=== PATIENT | female | born 1965 | race Caucasian/White ===

== ENCOUNTER 2017-05-19 19:18 | Inpatient (IN) | payer BC, OTHER ==
[2017-05-19 20:17] LABS: #Eosinphils 0.1 thou/uL (0.0-0.7); #Lymphocytes 2.1 thou/uL (1.20-3.40); #Monocytes 0.5 thou/uL (0.11-0.59); #Neutrophils 3.1 thou/uL (1.40-6.50); %Basophils 0.6 % (0.0-1.0); %Eosinophils 1.6 % (0.0-10.0); %Lymphocytes 36.1 % (21.0-51.0); %Monocytes 7.7 % (0.0-10.0); Hemoglobin 13.1 g/dL (12.0-16.0); Mean Corpuscular HGB CONC 33.6 g/dL (32.0-36.0); Mean Corpuscular Hemoglobin 31.2 pg (27.0-31.0); Mean Corpuscular Volume 92.8 fl (81.0-99.0); Mean Platelet Volume 6.7 fL (7.4-10.4); Platelet Count 235 thou/uL (130-400); RBC Distribution Width 11.2 % (11.5-14.5); White Blood Cell (WBC) Count 5.8 thou/uL (4.8-10.8)
[2017-05-19] MEDS ORDERED: methylPREDNISolone Sod Succ/PF 125 MG/2 ML VIAL ONE ×2 (20:29→20:33)
[2017-05-19 20:43] LABS: ALT (SGPT) 13 U/L (8-55); AST (SGOT) 13 U/L (5-34); Albumin 4.3 g/dL (3.5-5.0); Alkaline Phosphatase 47 U/L (40-150); Anion Gap 13 mmol/L (10-20); BUN (Urea Nitrogen) 13 mg/dL (7.0-18.7); Bilirubin, Total 0.4 mg/dL (0.2-1.2); Calc. Creatinine Clearance 0 mL/min (70-130); Calcium 9.7 mg/dL (7.8-10.44); Carbon Dioxide 28 mmol/L (22-29); Chloride 103 mmol/L (98-107); Estimated GFR-MDRD 55; Glucose 95 mg/dL (70-105); Potassium 4.1 mmol/L (3.5-5.1); Protein, Total 7.3 g/dL (6.0-8.3); Sodium 140 mmol/L (136-145)
[2017-05-19 21:44] VITALS: BMI 29.7
[2017-05-19] MEDS ORDERED: Senokot 8.6 MG TAB PO PRN (21:54)
[2017-05-19] MEDS ORDERED: Acetaminophen 325 MG TAB PO PRN (21:54)
[2017-05-19] MEDS ORDERED: hydrALAZINE 20 MG/ML VIAL SLOW IVP PRN (21:54)
[2017-05-19] MEDS ORDERED: Ondansetron ODT 4 MG TAB PO PRN (21:54)
[2017-05-19] MEDS ORDERED: Ondansetron HCl/PF 4 MG/2 ML Vial IVP PRN (21:54)
[2017-05-19] MEDS ORDERED: Eucerin (Mineral Oil/Petrolatum,White) 30 gm Jar TOP PRN (21:56)
[2017-05-19] MEDS ORDERED: Polyethylene Glycol 3350 17 GM Packet PO PRN (21:56)
[2017-05-19] MEDS ORDERED: methylPREDNISolone Sod Succ/PF 125 MG/2 ML VIAL IVP SCH (23:59)
--- NOTE | 2017-05-20 05:50 | HP ---
DATE OF ADMISSION: 05/19/2017 PRIMARY CARE PHYSICIAN: Dr. Reid Thapa. PRIMARY CONVERTER SKIMMER: Dr. Fleming. CHIEF COMPLAINT: Right-sided vision loss since last (05/13/2017). HISTORY OF PRESENT ILLNESS: Patient is a 51-year-old female with no neurological issues in the past, presented to the emergency room with above complaints. One week ago, patient noticed some difficulty in vision through right eye. Vision was blurry. This was progressively getting worse. Next day , she was evaluated by child development professor, Dr. Fleming in [place]. Ophthalmological examination was negative. An MRI of the brain with and without contrast done at [place] yesterday was consistent with optic neuritis. She received a call from the child development professor, Dr. Fleming to get admitted to the hospital for IV steroids. Dr. Fleming discussed the case with Neurology, Dr. Avelar. She denies any double vision, eye pain, or discharge. No other neurological deficit reported. Left eye vision is normal. PAST MEDICAL HISTORY: 1. History of migraines. 2. History of depression. PAST SURGICAL HISTORY: 1. Left heel surgery in 2009. 2. Bilateral tubal ligation. 3. Hospitalization for partial small-bowel obstruction at [facility] in 2016 that resolved with conservative management. ALLERGIES: No known drug allergies. CURRENT HOME MEDICATIONS: Vitamin B12 and ibuprofen as needed. FAMILY HISTORY: Father with hypertension and asthma. Mother with hypertension and cancer. Maternal grandmother with Alzheimer's dementia. Her mother also had breast cancer. SOCIAL HISTORY: Patient currently lives at home with her . She is self- employed, lives at home with her spouse. No smoking, alcohol, or drug use. REVIEW OF SYSTEMS: The following complete review of systems was negative, unless otherwise mentioned in the HPI or below: Constitutional: Weight loss or gain, ability to conduct usual activities. Skin: Rash, itching. Eyes: Double vision, pain. ENT/Mouth: Nose bleeding, neck stiffness, pain, tenderness. Cardiovascular: Palpitations, dyspnea on exertion, orthopnea. Respiratory: Shortness of breath, wheezing, cough, hemoptysis, fever, or night sweats. Gastrointestinal: Poor appetite, abdominal pain, heartburn, nausea, vomiting, constipation, or diarrhea. Genitourinary: Urgency, frequency, dysuria, nocturia. Musculoskeletal: Pain, swelling. Neurologic/Psychiatric: Anxiety, depression. Allergy/Immunologic: Skin rash, bleeding tendency. PHYSICAL EXAMINATION: VITAL SIGNS: Temperature 97.5, respirations 20, pulse 97, blood pressure 124/ 76 with O2 saturation 100% on room air. GENERAL: A 51-year-old female in no apparent distress. HEENT: Head atraumatic, normocephalic. Sclerae anicteric. Moist mucous membranes. No oral lesion. Pupils were equally reacting to light. The vision was diminished to her right. NECK: Supple, no JVD, no carotid bruit. LUNGS: Clear to auscultation bilaterally. HEART: S1, S2 present. Regular rate and rhythm. No murmurs, rubs, or gallops. ABDOMEN: Soft, nontender, bowel sounds present. EXTREMITIES: No edema or calf tenderness. NEUROLOGIC: Grossly nonfocal, moves all four extremities. PSYCHIATRY: Alert, awake, oriented x3. SKIN: Warm and dry. LYMPH NODES: No palpable lymph nodes in the neck. PERIPHERAL VASCULAR: Radial pulses palpable bilaterally. SKIN: Warm and dry. LYMPH NODES: No palpable lymph nodes in the neck. LABORATORY FINDINGS: CBC showed WBC 5.8 with hemoglobin 13.1, hematocrit 39, platelet 235. Chemistries showed sodium 140, potassium 4.1, chloride 103, bicarbonate 28, BUN 13, creatinine 1.05, glucose of 95. MRI of the brain was done at an outside facility. Family to bring the disk in a.m. IMPRESSION AND PLAN: 1. Optic neuritis causing painless visual deficit from the right eye. Patient will continue IV Solu-Medrol 250 mg every q.[address] Avelar's recommendation. Dr. Avelar will be consulted. We will add H2 blockers as well as calcium with vitamin D. Multiple sclerosis is suspected. 2. History of migraines without any acute episode. 3. Depression without any suicidal ideation. 4. Chronic kidney disease, stage 3. Plan of care was discussed with the patient and the family at the bedside. They stated understanding. MTDD
[2017-05-20] MEDS ORDERED: Mag-Al 1200 mg/1200 mg/30 ML UDCUP PO PRN (08:13)
[2017-05-20] MEDS ORDERED: Sodium Chloride 0.65% Nasal 44 ML BOT EA NARE PRN (08:13)
[2017-05-20] MEDS ORDERED: Chloraseptic Spray 180 ml Bottle PO PRN (08:13)
[2017-05-20] MEDS ORDERED: Labetalol HCl 100 MG/20 ML VIAL SLOW IVP PRN (08:13)
[2017-05-20] MEDS ORDERED: Loperamide HCl 2 MG CAP PO PRN (08:13)
[2017-05-20] MEDS ORDERED: Artificial Tears 18 DROP/0.9 ML EA EYE PRN (08:13)
[2017-05-20] MEDS ORDERED: Temazepam 15 MG CAP PO PRN (08:13)
[2017-05-20] MEDS ORDERED: Loratadine 10 MG TAB PO PRN (08:13)
[2017-05-20] MEDS ORDERED: Diabetic Tussin 200 MG/10 ML UDCUP PO PRN (08:13)
[2017-05-20] MEDS ORDERED: Milk Of Magnesia 30 ML UDCUP PO PRN (08:13)
[2017-05-20] MEDS ORDERED: Calcium Carbonate 500 MG ChewTAB PO PRN (08:13)
[2017-05-20] MEDS: HYDROcodone/Acetaminophen 5/325 mg Tablet PO PRN ×3 (08:35→22:32)
[2017-05-20] MEDS: Calcium Carbonate + Vit D 1 TAB PO SCH ×2 (08:37→16:05)
[2017-05-20] MEDS: Famotidine 20 MG TAB PO SCH ×2 (08:38→21:04)
--- NOTE | 2017-05-20 10:25 | PDOC.PN ---
- Subjective Encounter Start Date: 05/20/17 Encounter Start Time: 07:45 -: old records requested/rev pt c/o headache this morning, still has vision loss in right eye, no fever - Objective Resuscitation Status: Resuscitation Status FULL:Full Resuscitation MAR Reviewed: Yes Vital Signs & Weight: Vital Signs (12 hours) Temp Pulse Resp BP Pulse Ox 05/20/17 08:00 98.6 F 106 H 18 97 05/20/17 07:44 98.6 F 106 H 18 104/70 97 05/20/17 04:00 97.9 F 100 18 119/76 96 Result Diagrams: 05/19/17 20:07 05/19/17 20:07 Phys Exam - Physical Examination Constitutional: NAD HEENT: moist MMs, sclera anicteric Neck: no JVD, supple Respiratory: no wheezing, no rales, no rhonchi Cardiovascular: RRR, no significant murmur, no rub Gastrointestinal: soft, non-tender, no distention, positive bowel sounds Musculoskeletal: no edema, pulses present Neurological: non-focal, normal sensation, moves all 4 limbs Psychiatric: normal affect, A&O x 3 Skin: no rash, normal turgor Dx/Plan (1) Optic neuritis, right Code(s): H46.9 - UNSPECIFIED OPTIC NEURITIS Status: Acute (2) Anxiety and depression Code(s): F41.8 - OTHER SPECIFIED ANXIETY DISORDERS Status: Chronic (3) CKD (chronic kidney disease) stage 3, GFR 30-59 ml/min Code(s): N18.3 - CHRONIC KIDNEY DISEASE, STAGE 3 (MODERATE) Status: Chronic (4) Migraine Code(s): G43.909 - MIGRAINE, UNSP, NOT INTRACTABLE, WITHOUT STATUS MIGRAINOSUS Status: Chronic - Plan cont current plan of care * continue IV solumedrol * neurology to see later today * MRI from outside will get * medication reviewed as below * symptomatic treatment. Review of Systems - Review of Systems Eyes: Vision Change. negative: Pain, Conjunctivae Inflammation, Eyelid Inflammation, Redness, Other ENT: negative: Ear Pain, Ear Discharge, Nose Pain, Nose Discharge, Nose Congestion, Mouth Pain, Mouth Swelling, Throat Pain, Throat Swelling, Other Respiratory: negative: Cough, Dry, Shortness of Breath, Hemoptysis, SOB with Excertion, Pleuritic Pain, Sputum, Wheezing Cardiovascular: negative: chest pain, palpitations, orthopnea, paroxysmal nocturnal dyspnea, edema, light headedness, other Gastrointestinal: negative: Nausea, Vomiting, Abdominal Pain, Diarrhea, Constipation, Melena, Hematochezia, Other Genitourinary: negative: Dysuria, Frequency, Incontinence, Hematuria, Retention , Other Musculoskeletal: negative: Neck Pain, Shoulder Pain, Arm Pain, Back Pain, Hand Pain, Leg Pain, Foot Pain, Other Neurological: Other (headache). negative: Weakness, Numbness, Incoordination, Change in Speech, Confusion, Seizures - Medications/Allergies Allergies/Adverse Reactions: Allergies Allergy/AdvReac Type Severity Reaction Status Date / Time No Known Allergies Allergy Unverified 05/19/17 21:28 Medications: Current Medications Acetaminophen (Tylenol) 650 mg PO Q4H PRN PRN Reason: Headache/Fever or Pain Last Admin: 05/20/17 04:01 Dose: 650 mg Hydrocodone Bitart/Acetaminophen ([place] 5/325) 1 tab PO Q4H PRN PRN Reason: Moderate Pain (4-6) Last Admin: 05/20/17 08:35 Dose: 1 tab Al Hydroxide/Mg Hydroxide (Maalox) 15 ml PO Q4H PRN PRN Reason: Heartburn or Indigestion Artificial Tears (Tears Naturale) 0 drop EA EYE PRN PRN PRN Reason: Dry Eyes Calcium Carbonate (Tums) 1,000 mg PO Q4H PRN PRN Reason: Heartburn or Indigestion Calcium/Vitamin D (Caltrate 600 + Vit D) 1 tab PO BID-[facility] Last Admin: 05/20/17 08:37 Dose: 1 tab Famotidine (Pepcid) 20 mg PO BID [facility] Last Admin: 05/20/17 08:38 Dose: 20 mg Guaifenesin (Robitussin Sf) 200 mg PO Q4H PRN PRN Reason: Cough Hydralazine HCl (Apresoline) 10 mg SLOW IVP Q4H PRN PRN Reason: SBP Greater Than 180 Methylprednisolone Sodium Succinate 250 mg/ Sodium Chloride 104 mls @ 208 mls/ hr IVPB 0300,0900,1500,2100 [facility] Last Admin: 05/20/17 02:54 Dose: 104 mls Labetalol HCl (Normodyne) 20 mg SLOW IVP Q4H PRN PRN Reason: Systolic BP > 180 Loperamide HCl (Imodium) 2 mg PO PRN PRN PRN Reason: Diarrhea/Loose Stools Loratadine (Claritin) 10 mg PO DAILYPRN PRN PRN Reason: Sinus Symptoms Magnesium Hydroxide (Milk Of Magnesium) 30 ml PO DAILYPRN PRN PRN Reason: Constipation Mineral Oil/White Petrolatum (Eucerin Cream) 0 gm TOP BIDPRN PRN PRN Reason: Dry Skin Ondansetron HCl (Zofran Odt) 4 mg PO Q6H PRN PRN Reason: Nausea/Vomiting Ondansetron HCl (Zofran) 4 mg IVP Q6H PRN PRN Reason: Nausea/Vomiting Phenol (Chloraseptic [place] 180 Ml Bot) 0 ml PO PRN PRN PRN Reason: Sore Throat Polyethylene Glycol (Miralax) 17 gm PO DAILYPRN PRN PRN Reason: Constipation Senna (Senokot) 2 tab PO HSPRN PRN PRN Reason: Constipation Sodium Chloride ([place] Nasal [place] 0.65%) 0 ml EA NARE QIDPRN PRN PRN Reason: Nasal Congestion Temazepam (Restoril) 15 mg PO HSPRN PRN PRN Reason: Insomnia
[2017-05-21 04:41] LABS: #Lymphocytes 0.7 thou/uL (1.20-3.40); #Monocytes 0.2 thou/uL (0.11-0.59); #Neutrophils 9.7 thou/uL (1.40-6.50); %Eosinophils 0.1 % (0.0-10.0); %Lymphocytes 6.9 % (21.0-51.0); %Monocytes 1.8 % (0.0-10.0); %Neutrophils 91.2 % (42.0-75.0); Hemoglobin 12.9 g/dL (12.0-16.0); Mean Corpuscular HGB CONC 34.1 g/dL (32.0-36.0); Mean Corpuscular Hemoglobin 31.4 pg (27.0-31.0); Mean Corpuscular Volume 91.9 fl (81.0-99.0); Mean Platelet Volume 7.6 fL (7.4-10.4); Platelet Count 232 thou/uL (130-400); RBC Distribution Width 11.1 % (11.5-14.5); Red Blood Cell (RBC) Count 4.11 mill/uL (4.20-5.40); White Blood Cell (WBC) Count 10.6 thou/uL (4.8-10.8)
[2017-05-21 04:48] LABS: Anion Gap 12 mmol/L (10-20); BUN (Urea Nitrogen) 11 mg/dL (7.0-18.7); Calc. Creatinine Clearance 138 mL/min (70-130); Calcium 9.4 mg/dL (7.8-10.44); Carbon Dioxide 27 mmol/L (22-29); Chloride 106 mmol/L (98-107); Estimated GFR-MDRD Greater than 90; Glucose 155 mg/dL (70-105); Potassium 3.8 mmol/L (3.5-5.1); Sodium 141 mmol/L (136-145)
[2017-05-21 05:07] LABS: Syphilis Antibody Nonreactive (Nonreactive); Syphilis Antibody Index 0.04 S/CO (<1.00 Non-Reactive)
[2017-05-21 05:20] LABS: Folate (Folic Acid) 5.9 ng/mL (7.0-31.4)
[2017-05-21] MEDS: Famotidine 20 MG TAB PO SCH ×2 (08:15→20:49)
[2017-05-21] MEDS: Calcium Carbonate + Vit D 1 TAB PO SCH ×2 (08:15→18:01)
--- NOTE | 2017-05-21 09:36 | PDOC.PN ---
- Subjective Encounter Start Date: 05/21/17 Encounter Start Time: 08:50 Patient seen and examined. No new complaints. No overnight events no headache today, 10% improvement per pt - Objective Resuscitation Status: Resuscitation Status FULL:Full Resuscitation MAR Reviewed: Yes Vital Signs & Weight: Vital Signs (12 hours) Temp Pulse Resp BP Pulse Ox 05/21/17 08:18 95 05/21/17 07:41 98.7 F 109 H 16 128/81 93 L I&O: 05/20/17 05/21/17 05/22/17 06:59 06:59 06:59 Intake Total 1020 Balance 1020 Result Diagrams: 05/21/17 03:31 05/21/17 03:31 Phys Exam - Physical Examination Constitutional: NAD HEENT: PERRLA, moist MMs, sclera anicteric Neck: no JVD, supple Respiratory: no wheezing, no rales, no rhonchi Cardiovascular: RRR, no significant murmur, no rub Gastrointestinal: soft, non-tender, no distention, positive bowel sounds Musculoskeletal: no edema, pulses present Neurological: non-focal, normal sensation, moves all 4 limbs Psychiatric: normal affect, A&O x 3 Skin: no rash, normal turgor Dx/Plan (1) Optic neuritis, right Code(s): H46.9 - UNSPECIFIED OPTIC NEURITIS Status: Acute (2) Anxiety and depression Code(s): F41.8 - OTHER SPECIFIED ANXIETY DISORDERS Status: Chronic (3) CKD (chronic kidney disease) stage 3, GFR 30-59 ml/min Code(s): N18.3 - CHRONIC KIDNEY DISEASE, STAGE 3 (MODERATE) Status: Chronic (4) Migraine Code(s): G43.909 - MIGRAINE, UNSP, NOT INTRACTABLE, WITHOUT STATUS MIGRAINOSUS Status: Chronic - Plan cont current plan of care * today MRI cervical and thoracic spine * medication reviewed as below * symptomatic treatment * continue IV solumedrol * neurology following. Review of Systems - Review of Systems Constitutional: negative: fever, chills, sweats, weakness, malaise, other Eyes: Vision Change. negative: Pain, Conjunctivae Inflammation, Eyelid Inflammation, Redness, Other ENT: negative: Ear Pain, Ear Discharge, Nose Pain, Nose Discharge, Nose Congestion, Mouth Pain, Mouth Swelling, Throat Pain, Throat Swelling, Other Respiratory: negative: Cough, Dry, Shortness of Breath, Hemoptysis, SOB with Excertion, Pleuritic Pain, Sputum, Wheezing Cardiovascular: negative: chest pain, palpitations, orthopnea, paroxysmal nocturnal dyspnea, edema, light headedness, other Gastrointestinal: negative: Nausea, Vomiting, Abdominal Pain, Diarrhea, Constipation, Melena, Hematochezia, Other Genitourinary: negative: Dysuria, Frequency, Incontinence, Hematuria, Retention , Other Musculoskeletal: negative: Neck Pain, Shoulder Pain, Arm Pain, Back Pain, Hand Pain, Leg Pain, Foot Pain, Other Skin: negative: Rash, Lesions, Santy, Bruising, Other - Medications/Allergies Allergies/Adverse Reactions: Allergies Allergy/AdvReac Type Severity Reaction Status Date / Time No Known Allergies Allergy Unverified 05/19/17 21:28 Medications: Current Medications Acetaminophen (Tylenol) 650 mg PO Q4H PRN PRN Reason: Headache/Fever or Pain Last Admin: 05/20/17 04:01 Dose: 650 mg Hydrocodone Bitart/Acetaminophen ([place] 5/325) 1 tab PO Q4H PRN PRN Reason: Moderate Pain (4-6) Last Admin: 05/20/17 22:32 Dose: 1 tab Al Hydroxide/Mg Hydroxide (Maalox) 15 ml PO Q4H PRN PRN Reason: Heartburn or Indigestion Artificial Tears (Tears Naturale) 0 drop EA EYE PRN PRN PRN Reason: Dry Eyes Calcium Carbonate (Tums) 1,000 mg PO Q4H PRN PRN Reason: Heartburn or Indigestion Last Admin: 05/21/17 04:21 Dose: 1,000 mg Calcium/Vitamin D (Caltrate 600 + Vit D) 1 tab PO BID-[facility] Last Admin: 05/21/17 08:15 Dose: 1 tab Famotidine (Pepcid) 20 mg PO BID [facility] Last Admin: 05/21/17 08:15 Dose: 20 mg Guaifenesin (Robitussin Sf) 200 mg PO Q4H PRN PRN Reason: Cough Hydralazine HCl (Apresoline) 10 mg SLOW IVP Q4H PRN PRN Reason: SBP Greater Than 180 Methylprednisolone Sodium Succinate 250 mg/ Sodium Chloride 104 mls @ 208 mls/ hr IVPB 0300,0900,1500,2100 [facility] Last Admin: 05/21/17 08:16 Dose: 104 mls Labetalol HCl (Normodyne) 20 mg SLOW IVP Q4H PRN PRN Reason: Systolic BP > 180 Loperamide HCl (Imodium) 2 mg PO PRN PRN PRN Reason: Diarrhea/Loose Stools Loratadine (Claritin) 10 mg PO DAILYPRN PRN PRN Reason: Sinus Symptoms Magnesium Hydroxide (Milk Of Magnesium) 30 ml PO DAILYPRN PRN PRN Reason: Constipation Mineral Oil/White Petrolatum (Eucerin Cream) 0 gm TOP BIDPRN PRN PRN Reason: Dry Skin Ondansetron HCl (Zofran Odt) 4 mg PO Q6H PRN PRN Reason: Nausea/Vomiting Ondansetron HCl (Zofran) 4 mg IVP Q6H PRN PRN Reason: Nausea/Vomiting Phenol (Chloraseptic [place] 180 Ml Bot) 0 ml PO PRN PRN PRN Reason: Sore Throat Polyethylene Glycol (Miralax) 17 gm PO DAILYPRN PRN PRN Reason: Constipation Senna (Senokot) 2 tab PO HSPRN PRN PRN Reason: Constipation Sodium Chloride ([place] Nasal [place] 0.65%) 0 ml EA NARE QIDPRN PRN PRN Reason: Nasal Congestion Temazepam (Restoril) 15 mg PO HSPRN PRN PRN Reason: Insomnia
--- NOTE | 2017-05-21 13:37 | PRG ---
DATE OF SERVICE: 05/21/2017 SUBJECTIVE: Ms. Riley is a pleasant 51-year-old female who presented with acute onset of right optic neuritis. Today, she reports of having noted some improvement in her vision. She is now able to make out and the lining of the objects as well as some colors although she really is not com pletely back to normal yet. She denies any other new symptoms. PHYSICAL EXAMINATION: VITAL SIGNS: Blood pressure of 128/81, pulse of 109, temperature of 98.7, respirations of 16, O2 sat s of 93% on room air. GENERAL: Well-developed, well-nourished female in no apparent distress. RESPIRATORY: Clear to auscultation bilaterally. CARDIOVASCULAR: Regular rate and rhythm. NEUROLOGIC: Essentially unchanged except for some improvement in her vision in the right eye, compar ed to yesterday. IMAGING STUDIES: MRI cervical spine and thoracic spine were reviewed, which are essentially unremark able showing no sign of any new acute lesion, new acute demyelinating lesion. ASSESSMENT AND PLAN: Right optic neuritis. Ms. Riley is a pleasant 51-year-old female who presented with acute onset of right-sided v ision loss. She is found to have a right optic neuritis. Her MRI of the brain showed a single lesio n suggestive of sclerosis. Her MRI cervical and thoracic spine appeared normal to me, I am still tawana velazquez for the official radiology report. I have discussed with the patient that we will continue with IV steroids and complete 12 doses. She will need a lumbar puncture which I have ordered for today. She will follow up in my clinic in 2 weeks and we will discuss the results of the lumbar puncture du ring that visit. She will need a Medrol Dosepak added up on discharge. Thank you for the consultation.
--- NOTE | 2017-05-21 13:39 | MRI ---
MRI THORACIC SPINE WITH AND WITHOUT CONTRAST: HISTORY: Demyelinating disease. TECHNIQUE: Multiplanar, multisequential imaging of the thoracic spine. Post contrast images obtained after the administration of 17 mL of MultiHance IV. FINDINGS: The thoracic vertebrae maintain normal height and alignment. Very mild degenerative change at the th oracic spine noted with mild anterior osteophytes. Disk spaces are preserved. No vertebral body ruben ma or enhancement identified. No evidence of disk bulge or disk protrusion at any of the thoracic le vels. Thoracic cord signal is normal. No evidence of a demyelinating process. IMPRESSION: Unremarkable MRI of the thoracic spine. POS: [facility]
--- NOTE | 2017-05-21 13:46 | MRI ---
MRI CERVICAL SPINE WITH AND WITHOUT CONTRAST: Multiplanar, multisequential imaging of cervical spine obtained. Postcontrast images were obtained a fter administration of 17 cc MultiHance IV. HISTORY: Demyelinating disease. COMPARISON: No comparison. FINDINGS: Cervical vertebrae maintain height. There is mild anterior wedging involving the C5 vertebra. Loss of disk space noted at C5-6 and C6-7. Mild degenerative osteophytes in the anterior vertebrae most p rominent at C4-5 and C5-6. Slight anterior subluxation of C4 on C5. No vertebral body edema. At C4 -5, mild disk bulge and spondylosis efface the anterior subarachnoid space. No cord impingement. No significant foraminal stenosis. At C5-6, mild disk bulge with spondylosis effaced the subarachnoid space. No cord impingement. No cervical canal stenosis. The cervical cord signal appears normal. No evidence of demyelinating process. No abnormal enhancem ent. IMPRESSION: 1. There are mild to moderate degenerative changes in the mid cervical spine most prominent at C4-5 and C5-6 levels as described above. 2. No cervical cord abnormality identified. POS: [facility]
[2017-05-21 15:18] LABS: Color Of CSF Supernatant COLORLESS (Colorless); Tube # 1; Unspun CSF Color COLORLESS (Colorless)
[2017-05-21 15:19] LABS: CSF Source CSF; Clarity Clear (Clear); RBC Count - Manual 0 /cumm (None Seen); Tube # 4; WBC/NonHematics Count - Manual 3 /cumm (0-5)
--- NOTE | 2017-05-21 15:28 | RAD ---
FLUOROSCOPIC GUIDED LUMBAR PUNCTURE: CLINICAL HISTORY: A 51-year-old female with new-onset vision change, optic neuritis. FLUOROSCOPIC DATE: 0.1 minutes intermittent fluoroscopy, 8 mGy*^m2. PROCEDURE: Informed consent was obtained. The patient was escorted to the procedural suite and sales merchandiser imaging of the lumbar spine was performed. The patient was placed in the prone position and the lumbar spine w as imaged fluoroscopically with a right interlaminar approach at the L2-3 level selected. The skin o boubacar the low back was prepped and draped in standard sterile fashion. Topical anesthesia was buffered 1% Lidocaine was achieved. Subsequently, a 20-gauge needle was uneventfully advanced into the theca l sac with clear colorless CSF present at the needle hub. Opening pressure was obtained and recorded at 25 cm H2O. Subsequently, 10 cc of clear colorless CSF was removed from the patient. This was pl aced into 4 separate sealed sterile containers and which was sent to the laboratory for further eric sis. The needle was removed from the patient. No procedural complications. The patient tolerated t he procedure well. IMPRESSION: Technically successful fluoroscopic-guided lumbar puncture yielding clear colorless CSF, which was se nt to the laboratory for further analysis. Laboratory results are pending. POS: [facility]
[2017-05-21 15:31] LABS: CSF, Glucose 106 mg/dl (40-70); CSF, Protein 40 mg/dL (15-40)
--- NOTE | 2017-05-21 15:34 | CON ---
DATE OF CONSULTATION: 05/20/2017 REASON FOR CONSULTATION: Acute optic neuritis in the right eye. HISTORY OF PRESENT ILLNESS: Ms. Riley is a 51-year-old female, who has been consulted for evaluation of right eye optic neuritis. The patient reports that on , she was eating lunch with her friend in restaurant when she noticed that her vision is blurred. 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 She had told this to her daughter who advised her to see bus driver for possible retinal detachment. She had seen bus driver on Wednesday and was noted to have optic nerve swelling. It was noted by the bus driver that she had loss of color perception in the right eye. At that point, he had obtained the MRI brain at outside facility. I have received a phone call from the bus driver on Wednesday stating that patient had an MRI brain done, which showed demyelinating plaque at the left periventricular region perpendicular to the left frontal horn. At that point, I had advised him to send the patient to the ER for further workup and management of acute optic neuritis. The patient reports that she has never had a similar episode in the past. She has no prior history of vision loss, double vision, numbness, tingling, weakness, difficulty with balance, slurred speech, difficulty with swallowing or changes in bowel or bladder function. She reports that since Wednesday, she has noticed that she has not been able to make any difference in color with right eye. She notes that when she is looking at objects everything seems diaz. She notes that she was driving and while driving , the signal light had turned red and she felt that the color was diaz. She had to close her right eye to visualize the color of the light. She denies any pain on eye movement. She denies any headache, no numbness, tingling, weakness , difficulty with balance, and difficulty with bowel or bladder function. PAST MEDICAL HISTORY: Significant for her migraines, depression. PAST SURGICAL HISTORY: Significant for left heel surgery in 2009, bilateral tubal ligation, and hospitalizations for partial small bowel obstruction in 2016 that resolved with conservative management. CURRENT MEDICATIONS: None. ALLERGIES: No known drug allergies. FAMILY HISTORY: Significant for father with hypertension and asthma. Mother with hypertension and breast cancer. SOCIAL HISTORY: She is currently self-employed. She lives at home with her spouse. She denies smoking, alcohol use, or illicit drug use. REVIEW OF SYSTEMS: As mentioned in the HPI, otherwise negative. PHYSICAL EXAMINATION: VITAL SIGNS: Blood pressure of 125/73, pulse of 98, temperature of 98.1, respirations of 20, O2 sats of 95% on room air. GENERAL: Well-developed, well-nourished female in no apparent distress. RESPIRATORY: Clear to auscultation bilaterally. CARDIOVASCULAR: Regular rate and rhythm. NEUROLOGIC: Mental status: The patient is awake, alert, oriented x3. Speech and language: Fluent speech. Cranial nerves: Pupils are 3 mm and reactive. She has a right RAPD. Visual allen are full to threat. She has loss of color perception on the right eye. External muscles are intact. No nystagmus is noted. Face is symmetric. Tongue and uvula midline. Motor exam showed normal tone and bulk with a 5/5 strength in both upper and lower extremities. Sensory : Sensation is intact and symmetric. Deep tendon reflexes 2+ reflexes in both upper and lower extremities. Babinski: Plantar responses flexion bilaterally. Coordination intact to [id number] and finger tapping bilaterally. Gait and Romberg are normal. LABORATORY DATA: Reviewed, which included CBC, CMP which is all essentially normal. IMAGING STUDIES: MRI brain with and without contrast from outside facility was reviewed, which showed a single hyperintense lesion and the left periventricular region adjacent to frontal horn otherwise unremarkable. IMPRESSION: 1. Acute optic neuritis. 2. Possible multiple sclerosis. Ms. Riley is a pleasant 51-year-old female who presented with acute onset of vision changes in the right eye. She is found to have acute optic neuritis. Her MRI brain at the outside facility showed a small hyperintense lesion in the left periventricular region adjacent to the frontal horn. Given that she has no other lesions, this would suggest mono sclerosis rather than multiple sclerosis. I have discussed with the patient in detail and explained that given that there is only one lesion, diagnosis of multiple sclerosis cannot be made at this time. I will obtain MRI C-spine and T-spine with and without contrast to rule out any other lesions that would stitch bonder machine operator helper the diagnosis of multiple sclerosis. If the MRI C-spine and T-spine are normal, then she would benefit from having a lumbar puncture done to further evaluate for oligoclonal bands on the CSF studies. I have discussed that if the CSF studies are normal, then at that point she will be closely monitored with serial MRI to see if there is any changes in the lesions over the next few months which can stitch bonder machine operator helper in the diagnosis. She understood the current treatment plan and I have answered all the questions that she had during my meeting. I will recommend continuing her on Solu-Medrol 250 mg IV q.6 hours for a total of 12 doses. Once that is done, the patient is okay to be discharged to home with a Medrol Dosepak as an outpatient. She will follow up in my clinic in 2 weeks post-discharge. JANUSZ
[2017-05-21] MEDS: HYDROcodone/Acetaminophen 5/325 mg Tablet PO PRN (18:03)
[2017-05-22] MEDS: HYDROcodone/Acetaminophen 5/325 mg Tablet PO PRN (08:32)
[2017-05-22] MEDS: Calcium Carbonate + Vit D 1 TAB PO SCH (08:34)
[2017-05-22] MEDS: Famotidine 20 MG TAB PO SCH (08:34)
[2017-05-22 08:37] VITALS: BP 113/69; TEMP 98
--- NOTE | 2017-05-22 20:45 | DIS ---
DATE OF DISCHARGE: 05/22/2017 DISCHARGE DISPOSITION: Home. FOLLOWUP: 1. Follow up with primary care physician, Dr. Reid Thapa in 1 week. 2. Follow up with Neurology, Dr. Enedina Avelar in 1-2 weeks. The patient was seen on the day of discharge, denies any new complaints, visual symptoms improving. BRIEF HOSPITAL COURSE: The patient is a 51-year-old white female, who presented to the hospital with right-sided vision loss since 05/13/2017. The patient was seen by her maintenance parts technician, Dr. Lonnie love nd underwent an outpatient MRI that was consistent with optic neuritis. She was sent to the emergenc y room per neurology recommendation. Please refer to the history and physical dated 05/19/2017 for f urther details. The patient was admitted to the hospital with a diagnosis of optic neuritis. She was started on Solu -Medrol 250 mg q.6 hourly for a total of 12 dose per neurology recommendation. She completed 12 dose today. She will continue Medrol Dosepak. Lumbar puncture has been done, results pending at this ti in. She also had thoracic spine MRI and cervical spine MRI that did not show any neurological lesion s. She has been cleared by Neurology for discharge. FINAL DIAGNOSES: 1. Optic neuritis rule out multiple sclerosis. 2. Painless right-sided vision loss secondary to above. 3. History of migraines. 4. Depression. 5. Chronic kidney disease stage 3. Plan of care was discussed with the patient in detail. She stated understanding.
[2017-05-24 13:15] LABS: VDRL, CSF Non Reactive (Non Rea:<1:1)
[2017-05-25 15:25] LABS: CSF IgG Synthesis Rate 10.2 mg/day (-9.9 TO +3.3); IgG Serum 1020 mg/dL (700-1600); IgG/Alb CSF 0.24 (0.00-0.25)
== END 2017-05-22 16:32 | disposition home or self-care (01) | DRG 123 ==
LOC: ERS 19:18 → T4-B 20:30
PROVIDERS: ADMIT Internal Medicine; ATTEND Internal Medicine
PROC: 00JU3ZZ Inspection of Spinal Canal, Percutaneous Approach (ICD-10-PCS; principal; 2017-05-21)
DX: H46.9 Unspecified optic neuritis (principal); N18.3 Chronic kidney disease, stage 3 (moderate); F32.9 Major depressive disorder, single episode, unspecified; G43.909 Migraine, unspecified, not intractable, without status migrainosus; F41.8 Other specified anxiety disorders
CPT/HCPCS: 36415; 62270; 72156; 72157; 80048; 80053; 82040; 82042; 82607; 82746; 82784; 82945; 83916; 84157; 85025; 85652; 86140; 86592; 86780; 87070; 87205; 89051; 96374; J2930; J7050

== ENCOUNTER 2017-08-24 11:30 | Outpatient (CLI) | payer BC | END 2017-08-24 11:31 | disposition home or self-care (01) | LOC: BICRAD 11:30 | PROVIDERS: ATTEND Psychiatry & Neurology Neurology | DX: G35 Multiple sclerosis (principal) | CPT/HCPCS: 71046 ==